=== PATIENT | male | born 1990 | race American Indian/Alaskan Native ===

== ENCOUNTER 2020-07-17 10:45 | Emergency (ER) | payer SELFPAY ==
--- NOTE | 2020-07-17 12:03 | Emergency Department Report ---
- General Chief Complaint: Upper Respiratory Infection Stated Complaint: SOB,BODY PAIN Time Seen by Provider: 07/17/20 11:56 Source: patient, EMS Mode of arrival: Wheelchair Limitations: No Limitations - History of Present Illness Initial Comments: 29-year-old Thai male smoker and cocaine utilize presents emerge department complaining of a couple day history of cough congestion aches pains and coryza with feverish sensation. Ports no hemoptysis no hematemesis no hematochezia no nausea vomiting. -: Gradual Severity: mild Quality: dull Consistency: constant Worsens With: nothing Context: sick contacts Associated Symptoms: denies other symptoms Treatments Prior to Arrival: none - Related Data Previous Rx's Medication Instructions Recorded Last Taken Type Albuterol Mdi (or & Nicu Only) 2 puff IH QID PRN #1 inhalation 07/17/20 Unknown Rx [ProAir HFA Inhaler] Azithromycin [Zithromax] 500 mg PO QDAY #3 tablet 07/17/20 Unknown Rx Benzonatate [Tessalon Perles] 100 mg PO Q8HR #20 capsule 07/17/20 Unknown Rx predniSONE [Deltasone] 20 mg PO QDAY #5 tab 07/17/20 Unknown Rx Allergies Allergy/AdvReac Type Severity Reaction Status Date / Time No Known Allergies Allergy Unverified 07/17/20 11:22 ED Review of Systems ROS: Stated complaint: SOB,BODY PAIN Other details as noted in HPI Comment: All other systems reviewed and negative ED Past Medical Hx - Past Medical History Previous Medical History?: No - Surgical History Past Surgical History?: No - Social History Smoking Status: Current Every Day Smoker Substance Use Type: Alcohol, Cocaine, Marijuana - Medications Home Medications: Home Medications Medication Instructions Recorded Confirmed Last Taken Type Albuterol Mdi (or & Nicu Only) 2 puff IH QID PRN #1 inhalation 07/17/20 Unknown Rx [ProAir HFA Inhaler] Azithromycin [Zithromax] 500 mg PO QDAY #3 tablet 07/17/20 Unknown Rx Benzonatate [Tessalon Perles] 100 mg PO Q8HR #20 capsule 07/17/20 Unknown Rx predniSONE [Deltasone] 20 mg PO QDAY #5 tab 07/17/20 Unknown Rx ED Physical Exam - General Limitations: No Limitations General appearance: alert, in no apparent distress - Head Head exam: Present: atraumatic, normocephalic - Eye Eye exam: Present: normal appearance, PERRL. Absent: nystagmus Pupils: Present: normal accommodation - ENT ENT exam: Present: mucous membranes moist, TM's normal bilaterally, other (Swelling to the left nasal turbinate with some scant dried blood there is excessive deterioration of the right nasal turbinate no septal deviation or foreign body is appreciated is irritation to the right nares well. No sinus tenderness to percussion.). Absent: mucous membranes dry - Neck Neck exam: Present: normal inspection, full ROM - Respiratory Respiratory exam: Present: normal lung sounds bilaterally. Absent: respiratory distress, wheezes, rales, chest wall tenderness, accessory muscle use, decreased breath sounds - Cardiovascular Cardiovascular Exam: Present: regular rate, normal rhythm. Absent: systolic murmur, diastolic murmur, rubs, gallop - GI/Abdominal GI/Abdominal exam: Present: soft, normal bowel sounds - Rectal Rectal exam: Present: deferred - Extremities Exam Extremities exam: Present: normal inspection - Back Exam Back exam: Present: normal inspection - Neurological Exam Neurological exam: Present: alert, oriented X3 - Psychiatric Psychiatric exam: Present: normal affect, normal mood - Skin Skin exam: Present: warm, dry, intact, normal color. Absent: rash ED Course Vital Signs 07/17/20 11:25 Temperature 100.4 F H Pulse Rate 93 H Respiratory 18 Rate Blood Pressure 103/68 O2 Sat by Pulse 96 Oximetry ED Medical Decision Making - Radiology Data Radiology results: report reviewed Referring Physician:KITTY BEAULIEUPatient Name:JULIO BAUMANNPatient ID:[id number] of :[id number]:MaleAccession:[id number] Date:[id number] Status:Finalized Findings [facility] [address] [place] [address] XRay Report Signed Patient: JULIO BAUMANN MR#: [id number] 23 : 1990 Acct:[id number] Age/Sex: 29 / M ADM Date: 07/17/20 Loc: ED Attending Dr: Ordering Physician: VIDYA BUTLER Date of Service: 07/17/20 Procedure(s): XR chest routine 2V Accession Number(s): [id number] cc: VIDYA BUTLER Fluoro Time In Minutes: CHEST 2 VIEWS INDICATION / CLINICAL INFORMATION: cough and sob. COMPARISON: None available. FINDINGS: SUPPORT DEVICES: None. HEART / MEDIASTINUM: No significant abnormality. LUNGS / PLEURA: No significant pulmonary or pleural abnormality. No pneumothorax. ADDITIONAL FINDINGS: No significant additional findings. IMPRESSION: 1. No acute findings. Signer Name: Raj Ng MD Signed: 07/17/2020 12:36 PM Workstation Name: [id number] Transcribed By: SS Dictated By: Raj Ng MD Electronically Authenticated By: Raj Ng MD Signed Date/Time: 07/17/20 1236 DD/ 35 TD/TT: - Medical Decision Making This patient presents with acute cough, most consistent with bronchitis, asthma, sinusitis, pneumonia. Differential diagnosis includes bronchitis, sinusitis, asthma, pneumonia. Presentation not consistent with acute bacterial pneumonia, influenza, asthma, transient airway hyperresponsiveness. Presentation not consistent with chronic causes of cough (including GERD, asthma, postnasal discharge, medication side effect, CHF, lung cancer or mass). this patient presents to the emergency department with fever and lower respiratory symptoms concerning for viral syndrome including flu and COVID-19. Patient has suspicion and is for COVID-19 infection. Differential diagnosis includes other viral causes of lower respiratory symptoms, pneumonia, asthma, bronchitis. Patient is well-appearing with acceptable vitals, lacks comorbidities admission and a reassuring physical examination and is safe to be discharged home nasal swab for COVID testing is recommended. Provide strict return precautions and instructions on self isolation/quarantine and anticipatory guidance. Critical care attestation.: If time is entered above; I have spent that time in minutes in the direct care of this critically ill patient, excluding procedure time. ED Disposition Clinical Impression: Bronchitis, Nasal airway abnormality Disposition: DC-01 TO HOME OR SELFCARE Is pt being admited?: No Does the pt Need Aspirin: No Condition: Stable Instructions: Cough, Adult, [id number], Upper Respiratory Infection, Adult, Viral Respiratory Infection, [id number], Cough, Adult, Chronic Bronchitis (ED) Prescriptions: predniSONE [Deltasone] 20 mg PO QDAY #5 tab Albuterol Mdi (or & Nicu Only) [ProAir HFA Inhaler] 2 puff IH QID PRN #1 inhalation PRN Reason: Shortness Of Breath Benzonatate [Tessalon Perles] 100 mg PO Q8HR #20 capsule Azithromycin [Zithromax] 500 mg PO QDAY #3 tablet Referrals: [facility] [Provider Group] - 3-5 Days (Please follow-up with the ENT for further evaluation of your nasal condition) EDGAR SALES MD [Staff Physician] - 3-5 Days PRIMARY CAREMD [Primary Care Provider] - 3-5 Days
--- NOTE | 2020-07-17 12:41 | XRay Report ---
CHEST 2 VIEWS INDICATION / CLINICAL INFORMATION: cough and sob. COMPARISON: None available. FINDINGS: SUPPORT DEVICES: None. HEART / MEDIASTINUM: No significant abnormality. LUNGS / PLEURA: No significant pulmonary or pleural abnormality. No pneumothorax. ADDITIONAL FINDINGS: No significant additional findings. IMPRESSION: 1. No acute findings. Signer Name: Raj Ng MD Signed: 07/17/2020 12:36 PM Workstation Name: [id number]
[2020-07-17 14:39] VITALS: BP 110/70
== END 2020-07-17 14:46 | disposition home or self-care (01) ==
LOC: ED 10:45
DX: J20.9 Acute bronchitis, unspecified (principal); F17.200 Nicotine dependence, unspecified, uncomplicated; F12.10 Cannabis abuse, uncomplicated; F14.10 Cocaine abuse, uncomplicated
CPT/HCPCS: 71046